=== PATIENT | female | born 1995 | race Caucasian/White ===

== ENCOUNTER 2018-12-12 04:41 | Inpatient (IN) | payer BC ==
[2018-12-12] MEDS ORDERED: HYDROcodone/Acetaminophen 5/325 mg Tablet PO PRN ×2 (05:53)
[2018-12-12] MEDS ORDERED: Ondansetron PF 4 MG/2 ML Vial IVP PRN ×2 (05:53→07:41)
[2018-12-12] MEDS ORDERED: Butorphanol Tartrate 1 MG/ML VIAL SLOW IVP PRN (05:53)
[2018-12-12] MEDS ORDERED: hydrALAZINE 20 MG/ML VIAL SLOW IVP PRN ×2 (05:53→14:03)
[2018-12-12] MEDS ORDERED: Lidocaine 1% (PF) 30 ML VIAL SC PRN (05:53)
[2018-12-12] MEDS ORDERED: NS w/ Oxytocin 10 units 500 ML IV SCH (05:53)
[2018-12-12] MEDS ORDERED: Ibuprofen 800 MG TAB PO PRN (05:53)
[2018-12-12] MEDS ORDERED: Promethazine HCl 25 MG/ML VIAL IM PRN ×2 (05:53→07:41)
[2018-12-12] MEDS ORDERED: Lactated Ringer's 1,000 ML IV SCH (05:53)
[2018-12-12] MEDS ORDERED: NS / Oxytocin 40 units/1000ml 1,000 ML IV PRN (05:53)
[2018-12-12] MEDS: Lactated Ringer's 1,000 ML IV SCH ×2 (06:00→08:20)
[2018-12-12] MEDS ORDERED: Fentanyl 4 mcg/Bup 0.1% Cadd 100 ML ONE (06:03)
[2018-12-12 06:04] LABS: Hemoglobin 12.2 g/dL (12.0-16.0); Mean Corpuscular HGB CONC 32.4 g/dL (32.0-36.0); Mean Corpuscular Hemoglobin 28.9 pg (27.0-31.0); Mean Corpuscular Volume 89.2 fL (78.0-98.0); Mean Platelet Volume 8.3 fL (7.4-10.4); Platelet Count 332 thou/uL (130-400); RBC Distribution Width 13.5 % (11.5-14.5); Red Blood Cell (RBC) Count 4.21 mill/uL (4.20-5.40); White Blood Cell (WBC) Count 13.1 thou/uL (4.8-10.8)
[2018-12-12 06:09] VITALS: BMI 42.9
[2018-12-12 06:52] LABS: HBSAg Index 0.37 S/CO (0-0.99); Hep B Surf Ag Non-Reactive S/CO (NonReactive); Syphilis Antibody Nonreactive (Nonreactive); Syphilis Antibody Index 0.07 S/CO (<1.00 Non-Reactive)
[2018-12-12] MEDS ORDERED: ePHEDrine/0.9% NaCl/PF SYRINGE 50 mg/10 ml SLOW IVP PRN (07:41)
[2018-12-12] MEDS ORDERED: Naloxone HCl 0.4 mg/ml Vial IVP PRN ×2 (07:41)
[2018-12-12] MEDS ORDERED: diphenhydrAMINE 50 MG/ML VIAL IVP PRN (07:41)
[2018-12-12] MEDS ORDERED: Lactated Ringer's 500 ML IV PRN (07:41)
[2018-12-12] MEDS ORDERED: Acetaminophen 325 MG TAB PO PRN (07:41)
[2018-12-12] MEDS ORDERED: Fentanyl 4 mcg/Bupivacaine 0.1% Cassette 100 ML EPIDURAL SCH (07:45)
[2018-12-12] MEDS ORDERED: Communication Order-Pharmacy FS SCH (07:45)
[2018-12-12] MEDS ORDERED: Lidocaine 2% MPF 10 ML AMP (For Epidural Use) ONE ×2 (09:00→11:11)
[2018-12-12] MEDS ORDERED: Bupivacaine/Epinephrine 0.25% 30 ML VIAL ONE ×2 (09:00→11:11)
[2018-12-12] MEDS ORDERED: Bupivacaine 0.25% HCL 30 ML VIAL ONE ×2 (09:00→11:11)
[2018-12-12] MEDS ORDERED: Sodium Chloride 0.9% (PF) 10 ML VIAL ONE ×2 (09:00→11:11)
[2018-12-12] MEDS ORDERED: Milk Of Magnesia 30 ML UDCUP PO PRN (14:03)
[2018-12-12] MEDS ORDERED: Bisacodyl 10 MG SUPP PR PRN (14:03)
[2018-12-12] MEDS ORDERED: NS / Oxytocin 40 units/1000ml 1,000 ML IV SCH (14:03)
[2018-12-12] MEDS ORDERED: Benzocaine-Menthol 82.5 ML CAN TOP PRN (14:03)
[2018-12-12] MEDS ORDERED: Adacel (T-DAP) 0.5 ML SYRINGE IM ONE (14:03)
[2018-12-12] MEDS ORDERED: Lanolin Ointment 7 GM TUBE TOP PRN (14:03)
[2018-12-12] MEDS: Ibuprofen 800 MG TAB PO SCH ×2 (18:15→21:25)
[2018-12-12] MEDS: Ferrous Sulfate 325 MG TAB PO SCH (18:15)
[2018-12-12] MEDS: Docusate Calcium (SURFAK) 240 MG CAP PO SCH (21:25)
[2018-12-13] MEDS: Ibuprofen 800 MG TAB PO SCH (05:59)
[2018-12-13 06:15] LABS: Hemoglobin 10.7 g/dL (12.0-16.0)
[2018-12-13] MEDS ORDERED: Prenatal Vitamin 1 TAB PO SCH (09:00)
[2018-12-13] MEDS: Ferrous Sulfate 325 MG TAB PO SCH (09:11)
[2018-12-13] MEDS: Docusate Calcium (SURFAK) 240 MG CAP PO SCH (09:11)
--- NOTE | 2018-12-13 10:58 | OP ---
DATE OF PROCEDURE: 12/12/2018 The patient delivered a female on 12/12/2018 at 12:21 p.m. by an uncomplicated term spontaneous vaginal delivery. Gestational age is 39 weeks and 4 days. weight 3607 g. Apgars are 8 and 9. Placenta delivered spontaneously followed by a Pitocin infusion. There were no lacerations. Quantitative blood loss 200 mL. Counts were correct. Delivering physician, Dr. Fer Bray. Mother and baby are both stable in the room in the immediate . Job ID: [id number]
[2018-12-13 13:11] VITALS: BP 122/58; TEMP 98.1
--- NOTE | 2018-12-14 01:53 | DIS ---
DATE OF ADMISSION: 12/12/2018 DATE OF DISCHARGE: 12/13/2018 ADMITTING DIAGNOSIS: Induction of labor at 39 weeks. DISCHARGE DIAGNOSIS: Term spontaneous vaginal delivery. PROCEDURE: Term spontaneous vaginal delivery. CONSULTATIONS: None. HOSPITAL COURSE: Patient is a 23-year-old G3, P2 female, who presented for induction of labor on 12/12/2018, resulting in a term spontaneous vaginal delivery. Patient's course has been uncomplicated. Her hemoglobin is 10.7, hematocrit 32.9 this morning. She reports she is tolerating p.o., voiding on her own, having decreased lochia and good pain control. OBJECTIVE: VITAL SIGNS: This morning, blood pressure 100/57, temperature 97.7, pulse is 76, respiratory rate 16, and saturating 97% on room air. GENERAL: She appears to be in no acute distress. She is alert, oriented, cooperative, and pleasant to interact with. HEENT: Head is normocephalic and atraumatic. ABDOMEN: Fundus is firm. EXTREMITIES: Nontender, nonedematous. ASSESSMENT AND PLAN: Patient will be discharged to home. DISCHARGE INSTRUCTIONS: Follow up with Dr. Gomez in 6 weeks or sooner if she experiences fever, increasing pain or bleeding. She has a prescription for ibuprofen in the chart, 800 mg, #20 p.r.n. for pain. Job ID: [id number]
== END 2018-12-13 15:10 | disposition home or self-care (01) | DRG 807 ==
LOC: L&D/OP 04:41 → L&D 05:39 → 3SW 15:36
PROVIDERS: ADMIT Obstetrics & Gynecology; ATTEND Obstetrics & Gynecology
PROC: 10907ZC Drainage of Amniotic Fluid, Therapeutic from Products of Conception, Via Natural or Artificial Opening (ICD-10-PCS; principal; 2018-12-12)
PROC: 10E0XZZ Delivery of Products of Conception, External Approach (ICD-10-PCS; 2018-12-12)
PROC: 3E033VJ Introduction of Other Hormone into Peripheral Vein, Percutaneous Approach (ICD-10-PCS; 2018-12-12)
DX: O77.0 Labor and delivery complicated by meconium in amniotic fluid (principal); Z37.0 Single live birth; Z3A.39 39 weeks gestation of pregnancy
CPT/HCPCS: 36415; 51702; 85014; 85018; 85027; 86780; 86850; 86900; 86901; 87340; 90715; 99285; J2001; S0020